=== PATIENT | male | born 1955 | race Caucasian/White ===

== ENCOUNTER → 2016-10-16 | Outpatient (CLI) | payer MEDICARE, MEDICAID ==
[~2016-10-16] MED LIST: LIDOCAINE 1%/EPI 1:100,000 20 ML VIAL. ONE
== END | disposition home or self-care (01) ==
LOC: PCVCINTER 10:45
PROVIDERS: ATTEND Internal Medicine
DX: R55 Syncope and collapse (principal); J44.9 Chronic obstructive pulmonary disease, unspecified; R42 Dizziness and giddiness
CPT/HCPCS: 33282; C1764; J3490